=== PATIENT | male | born 1945 | race Caucasian/White ===

== ENCOUNTER → 2017-06-06 14:10 | Outpatient (CLI) | payer MEDICARE, OTHER, SELFPAY ==
--- NOTE | 2017-06-06 14:12 | CT_ITS ---
STUDY: CT ABDOMEN AND PELVIS WITHOUT CONTRAST REASON FOR EXAM: Male, 71 years old. Lower abdominal pain, penis pain, history of hypertension, diabetes, prostate cancer, bladder cancer, radiation therapy, prostatectomy, ureteral stents. RADIATION DOSAGE (If Supplied By Facility): CTDIvol = ( 6.74 ) mGy, DLP = ( 345.07 ) mGycm TECHNIQUE: Transaxial 2.5 mm images were obtained from the dome of the diaphragm to the symphysis pubis without oral contrast, and without intravenous contrast. Sagittal and coronal images were reconstructed. Axial noncontrast Individualized dose optimization techniques were used for this CT. COMPARISON: CT abdomen and pelvis 02/03/2017. 02/26/2016. FINDINGS: The visualized lung bases are unremarkable. The visualized portions of the heart are within normal limits. Normal liver. Normal gallbladder and extrahepatic biliary system. Normal spleen. Normal pancreas. Normal bilateral adrenal glands. Involution of right kidney may small size, pericolonic fat stranding and fluid, percutaneous pigtail catheter in the right collecting system. There is no right hydronephrosis, however the right ureter is prominent with periureteral stranding extending to the UVJ. Percutaneous left nephrostomy catheter with perirenal stranding, indistinct collecting system which is dilated extending to the left UVJ. Normal visualized stomach. Normal small intestine. There are multiple colonic diverticula consistent with diverticulosis. Thickening of the sigmoid colon image 132 series 2 at the site of right pelvic wall stranding. The appendix is visualized and appears normal. Image 99-107 series 2. There is stable atherosclerotic calcification of the abdominal aorta, without a demonstrated aneurysm. Normal inferior vena cava. Normal retroperitoneum. Asymmetric wall thickening of the urinary bladder more pronounced than the right side measuring 0.4, left side 0.5 cm. Indistinct soft tissue stranding and opacification right pelvic wall adjacent to the sigmoid colon. There is a stable small umbilical hernia containing fat. Subcutaneous pockets of air and stranding likely secondary to injections. Normal osseous structures. CT/Abdomen/Pel W ORAL Cont Only IMPRESSION: 1. Mild right hydroureter, mild to moderate left hydronephrosis and hydroureter decreasing compared to previous examination with the percutaneous nephrostomy catheters in apparent good position. 2. Asymmetric urinary bladder wall thickening right greater than left, not significantly changed. 3. New inflammatory fat process in the right pelvis adjacent to wall thickened sigmoid colon, acute focal diverticulitis on chronic diverticulosis may be present. No focal abscess, obstruction, perforation or abscess. 4. Stable right renal involution. 5. Atherosclerosis, fat-containing umbilical hernia are stable findings. Electronically Signed: Lori Tate MD at 7:32 EST , Service support ,
== END ==
PROVIDERS: Family Provider Student in an Organized Health Care Education/Training Program; PCP Student in an Organized Health Care Education/Training Program; Visit Provider Urology
DX: R10.30 Lower abdominal pain, unspecified (principal)
CPT/HCPCS: 74176

== ENCOUNTER 2017-06-28 12:45 | Day surgery (SDC) | payer MEDICARE, OTHER, SELFPAY ==
[2017-06-28] VITALS (7 sets, daily range): BP systolic 113–137; BP diastolic 69–74; PULSE 82–87; RESP 14–16; TEMP 36.1–36.7; O2SAT 98–100; BMI 20.9
--- NOTE | 2017-06-28 12:54 | EKG12_ITS ---
Test Reason : PRE OP Blood Pressure : / mmHG Vent. Rate : 085 BPM Atrial Rate : 085 BPM P-R Int : 194 ms QRS Dur : 078 ms QT Int : 372 ms P-R-T Axes : -01 079 028 degrees QTc Int : 442 ms Normal sinus rhythm ST abnormality, possible digitalis effect Abnormal ECG When compared with ECG of 26-FEB-2016 22:35, No significant change was found Confirmed by GISELE LOUIS ([id number]), assignment editor FRANNY QUINTERO ([id number]) on 06/30/2017 3:19:31 PM Referred By: Eric Romero Confirmed By:GISELE LOUIS
[2017-06-28 13:51] LABS: Bedside Glucose 105 mg/dL (70-110)
[2017-06-28 13:53] LABS: Hematocrit 31.4 % (40-54); Hemoglobin 10.2 g/dl (13.0-16.5); Mean Corp Hgb Conc 32.5 g/gl (32-36); Mean Corpuscular Volume 101.6 fL (80-94); Mean Platelet Vol. 8.9 fl (6.2-12.0); Platelet Count 279 K/mm3 (150-450); RBC Distribution Width CV 14.3 % (11.6-14.6); Red Blood Count 3.09 M/mm3 (4.6-6.2)
[2017-06-28 13:55] LABS: Scan Indicated on CBC? Y/N NO
[2017-06-28 14:01] LABS: Anion Gap 11 (5-15); BUN 57 mg/dL (7-18); BUN/Creat Ratio 12.9 RATIO (10-20); Calcium,Total 8.8 mg/dL (8.5-10.1); Chloride 113 mmol/L (98-107); Creatinine, Serum 4.42 mg/dL (0.70-1.30); EST Glomerular Filtration Rate 14 mL/min (>60); Est Glom Filt Rate - Afr Amer 17 mL/min (>60); Estimated Creatinine Clearance 13.58 ml/min; Glucose 103 mg/dL (74-106); Potassium 3.6 mmol/L (3.5-5.1); Sodium Level 140 mmol/L (136-145)
[2017-06-28] MEDS: Cefazolin 2 GM in 0.9% Normal Saline 100 ML IV (14:16)
--- NOTE | 2017-06-28 14:21 | PCM.DC.POR ---
Discharge Diet: Renal Diet Discharge Activity: May Not Shower Additional Dressing/Incision Instructions:: Your dressings will be managed by the dialysis center. Please keep the catheters clean and dry.. Allergies/Adverse Reactions: Allergies No Known Allergies Allergy (Verified 06/27/17 14:22) Medications to take at Discharge Lactose-Reduced Food [Boost Plus] 237 ml PO BID 02/26/16 Amlodipine [Norvasc] 10 mg PO DAILY #30 tab 03/03/16 Insulin Aspart [Novolog Flexpen] 16 units SC QHS 06/16/16 Multivitamins,Therapeutic [Multivitamin] 1 tab PO DAILY 06/18/16 Ferrous Sulfate [Iron] 325 mg PO DAILY 11/02/16 Insulin Aspart [Novolog Flexpen] 6 units SC TIDCM 11/18/16 Hydrocodone Bitart/Apap 5-325 [Norris 5MG-325MG] 1 tablet PO Q6H PRN PRN 3 Days #6 tablet 06/28/17 The following prescriptions were given: Hydrocodone Bitart/Apap 5-325 [Norris 5MG-325MG] 1 tablet PO Q6H PRN PRN 3 Days #6 tablet PRN Reason: Pain Primary Care Physician: Omero Hager DO [Primary Care Provider] - Please Follow Up With: Eric Romero MD - [phone] When: Please plan to follow up in14 days in the office.
--- NOTE | 2017-06-28 14:22 | RAD_ITS ---
STUDY: X-RAY CHEST REASON FOR EXAM: Male, 71 years old. Post hemodialysis catheter TECHNIQUE: Single AP portable view of the chest. COMPARISON: August 28, 2015 chest x-ray FINDINGS: There is a new large caliber right-sided central line in place the tip within the superior vena cava. There is no visualized pneumothorax. The lungs are clear and expanded. There is no demonstrated pleural abnormality. Normal size heart. Normal mediastinum and dirk. Normal visualized pulmonary arteries. There is atherosclerotic tortuosity of the aortic arch and descending thoracic aorta. There are diffuse degenerative changes of the visualized thoracic spine. Normal visualized ribs, clavicles, and shoulders. There is no demonstrated abnormality of the visualized soft tissue structures of the upper abdomen. RAD/Chest 1 View (Portable) IMPRESSION: New right side central line tip in the superior vena cava and no evidence of pneumothorax. Electronically Signed: Casi Mcdaniels MD at 15:31 EST Tel , Service support ,
[2017-06-28] MEDS: Bupivacaine 0.25% 30 ML Vial (14:35)
[2017-06-28] MEDS: Heparin 10,000 UNITS/10 ML Vial 10000 UNITS (14:46)
--- NOTE | 2017-06-28 14:54 | PCM.OPRPT ---
Problem List (1) Acute on chronic renal failure Status: Acute Qualifiers: Report of Operation Date of Procedure: 06/28/17 Pre-Operative Diagnosis: Chronic renal insufficiency Post-Operative Diagnosis: Same Surgery/Procedure Performed:: Right internal jugular 19 cm pre-curved palindrome catheter placement. Reference number [id number] lot #[id number] Description of Surgical Findings:: Timeout and informed consent was obtained. 71-year-old gent was taken out from. The table. Ancef 2 g given intravenous preoperatively. The right neck was sterilely prepped and draped in routine fashion. He underwent monitored anesthesia care local anesthetic. Under ultrasound guidance 1% lidocaine mixed 50-50 with 0.25% Marcaine was used as a local anesthetic. A total 20 cc was used. Local was instilled under ultrasound guidance. Micropuncture needle was used to access the right internal jugular vein. Seldinger wire technique performed. Local was instilled down upon the chest wall. Exit site was selected. Stab incisions created. The 19 cm pre-curved palindrome catheter was tunneled from the chest to the neck. Dense micropuncture sheath was placed an 035 J-wire was inserted. The tract was dilated. The sheath dilator was inserted. Under fluoroscopic control the wire and dilator were removed. The catheter was advanced to the sheath. The sheath was split and the catheter was positioned at the SVC atrial junction. Good curvilinear position was achieved. The limbs were irrigated and aspirated with saline then 2 cc per channel of heparinized saline. The catheter was secured skin with interrupted 3-0 nylon. The neck site was closed in interrupted 5-0 Vicryl subdermal stitch. Steri-Strips Telfa dressing applied to the neck site and a silver impregnated dressing was applied to the exit site. Sponge instrument and needle counts were reported to the surgeon to be correct. Blood loss was minimal. He was taken to the recovery or insect condition without apparent complication with stat portable chest x-ray pending. Specimens none. Drains none. Blood loss minimal. Eric Romero M.D., F.A.C.S.
--- NOTE | 2017-06-28 14:58 | OP.PCM_ITS ---
Problem List (1) Acute on chronic renal failure Status: Acute Qualifiers: Report of Operation Date of Procedure: 06/28/17 Pre-Operative Diagnosis: Chronic renal insufficiency Post-Operative Diagnosis: Same Surgery/Procedure Performed:: Right internal jugular 19 cm pre-curved palindrome catheter placement. Reference number [id number] lot #[id number] Description of Surgical Findings:: Timeout and informed consent was obtained. 71-year-old gent was taken out from. The table. Ancef 2 g given intravenous preoperatively. The right neck was sterilely prepped and draped in routine fashion. He underwent monitored anesthesia care local anesthetic. Under ultrasound guidance 1% lidocaine mixed 50-50 with 0.25% Marcaine was used as a local anesthetic. A total 20 cc was used. Local was instilled under ultrasound guidance. Micropuncture needle was used to access the right internal jugular vein. Seldinger wire technique performed. Local was instilled down upon the chest wall. Exit site was selected. Stab incisions created. The 19 cm pre-curved palindrome catheter was tunneled from the chest to the neck. Dense micropuncture sheath was placed an 035 J-wire was inserted. The tract was dilated. The sheath dilator was inserted. Under fluoroscopic control the wire and dilator were removed. The catheter was advanced to the sheath. The sheath was split and the catheter was positioned at the SVC atrial junction. Good curvilinear position was achieved. The limbs were irrigated and aspirated with saline then 2 cc per channel of heparinized saline. The catheter was secured skin with interrupted 3-0 nylon. The neck site was closed in interrupted 5-0 Vicryl subdermal stitch. Steri- Strips Telfa dressing applied to the neck site and a silver impregnated dressing was applied to the exit site. Sponge instrument and needle counts were reported to the surgeon to be correct. Blood loss was minimal. He was taken to the recovery or insect condition without apparent complication with stat portable chest x-ray pending. Specimens none. Drains none. Blood loss minimal. Eric Romero M.D., F.A.C.S.
--- NOTE | 2017-06-28 15:32 | SUR.PHASEI ---
APPT MAKE FOR PT TO HAVE VEIN MAPPING DONE ON JULY 12, PER REQUEST OF DR DOLL. APPT MADE BY [facility]. PT IS AWARE THAT AFTER VEIN MAPPING IS COMPLETE HE WILL NEED TO HAVE APPT TO SEE DR DOLL. PT DID NOT WANT APPT MADE WITH DR DOLL AT THIS TIME, HE WANTED TO WAIT UNTIL IT WAS CLOSER TO THE DATE DUE TO HEALTH CONCERNS AND APPOINTMENTS.
== END 2017-06-28 16:32 | disposition home or self-care (01) ==
LOC: SDC 12:46 → AC 12:47
PROVIDERS: Anesthesiology; Family Provider Student in an Organized Health Care Education/Training Program; PCP Student in an Organized Health Care Education/Training Program; Visit Provider Surgery
PROC: (CPT 36558; principal; 2017-06-28 15:45)
DX: I12.0 Hypertensive chronic kidney disease with stage 5 chronic kidney disease or end stage renal disease (principal); N18.5 Chronic kidney disease, stage 5; N17.9 Acute kidney failure, unspecified; E11.9 Type 2 diabetes mellitus without complications; D64.9 Anemia, unspecified; Z85.46 Personal history of malignant neoplasm of prostate; Z85.51 Personal history of malignant neoplasm of bladder; Z79.4 Long term (current) use of insulin; Z79.899 Other long term (current) drug therapy
CPT/HCPCS: 36558; 71045; 76000; 80048; 82962; 85027; 93005; C1750

== ENCOUNTER → 2017-07-12 13:38 | Outpatient (CLI) | payer MEDICARE, OTHER, SELFPAY ==
--- NOTE | 2017-07-12 13:39 | VDUE_ITS ---
Reason For Study: access for placement Right Arm Left Arm Right cephalic vein is compressible. Left cephalic vein is compressible. Right Cephalic Vein at the shoulder Left Cephalic Vein at the shoulder measures .204 x .196 cm. measures .204 x .189 cm. Right Cephalic Vein mid bicep measures .175 Left Cephalic Vein at mid bicep x .175 cm. measures .124 x .1 cm. Right Cephalic Vein above antecub Left Cephalic Vein above antecub measures .263 x .273 cm. measures .124 x .09 cm. Right Cephalic Vein below antecub Left Cephalic Vein below antecub measures .3 x .316 cm. measures .269 x .279 cm. Right Cephalic Vein in the forearm Left Cephalic Vein in the forearm measures .275 x .287 cm. measures .244 x .269 cm. Right Cephalic Vein at the wrist Left Cephalic Vein at the wrist measures .325 x .312 cm. measures .279 x .269 cm. Right basilic vein is compressible. Left basilic vein is compressible. Right Basilic Vein at the origin Basilic vein at origin measures .429 x .399 measures .352 x .387 cm. cm. Right Basilic Vein above antecub Basilic vein above antecub measures .437 measures .434 x .422 cm. x .445 cm. Right Basilic Vein below antecub Basilic vein below antecub measures .168 measures .144 x .139 cm. x .179 cm. Right Basilic Vein in the forearm Basilic vein in the forearm measures .191 measures .179 x .185 cm. x .214 cm. Right Basilic Vein at the wrist Basilic vein at the wrist measures .169 measures .144 x .127 cm. x .139 cm. Brachial artery 70.3 cm/s. Brachial artery 77.4 cm/s. Brachial artery .42 x .449 cm. Brachial artery .363 x .336 cm. Radial artery 68.4 cm/s. Radial artery 68.0 cm/s. Radial artery .171 x .195 cm. Radial artery .211 x .215 cm. Cephalic Vein is tortuous in the upper arm. Cephalic Vein is tortuous in the upper arm. < Interpretation Summary Patent and compressible bilateral upper extremity cephalic and basilic veins as noted. Tortuous bilateral upper arm cephalic veins. Small radial arteries bilaterally. Ordering Physician: Eric Romero Performed By: Lester Donato RVT
== END ==
PROVIDERS: Family Provider Student in an Organized Health Care Education/Training Program; PCP Student in an Organized Health Care Education/Training Program; Visit Provider Surgery
DX: Z01.818 Encounter for other preprocedural examination (principal); N17.9 Acute kidney failure, unspecified; N18.4 Chronic kidney disease, stage 4 (severe)
CPT/HCPCS: 93970; 93971; G0365

== ENCOUNTER 2017-07-18 10:45 | Outpatient (RCR) | payer MEDICARE, OTHER, SELFPAY ==
[2017-07-18 11:20] LABS: Absolute Lymphocyte Count 0.85 X10^3/ul (0.83-4.51); Absolute Neutrophil Count 5.5 X10^3/uL (2.0-7.7); Basophil# 0.03 X10^3/uL; Basophil% 0.4 % (0-1); Eosinophil# 0.16 X10^3/uL; Eosinophils% 2.2 % (0-5); Hematocrit 29.3 % (40-54); Hemoglobin 9.3 g/dl (13.0-16.5); Lymphocyte # 0.85 X10^3/ul (4.0); Lymphocyte % 11.8 % (19-41); Mean Corp Hgb Conc 31.7 g/gl (32-36); Mean Corpuscular Volume 103.9 fL (80-94); Mean Platelet Vol. 8.8 fl (6.2-12.0); Monocyte% 8.3 % (0-10); Neutrophil # 5.46 X10^3/uL (2.7-7.7); Neutrophil % 75.9 % (47-70); POSITIVE COUNT NO; POSITIVE DIFFERENTIAL NO; POSITIVE MORPHOLOGY NO; Platelet Count 289 K/mm3 (150-450); RBC Distribution Width CV 13.9 % (11.6-14.6); RBC Distribution Width SD 52.4 fl (35.1-43.9); Red Blood Count 2.82 M/mm3 (4.6-6.2); White Blood Count 7.2 K/mm3 (4.4-11.0)
[2017-07-18 11:25] LABS: Prothrombin Time (Protime)PT. 12.8 SECONDS (11.7-14.9)
[2017-07-18 11:26] LABS: Partial Thromboplast Time 25.8 Seconds (24.1-36.2)
[2017-07-18 11:42] LABS: Anion Gap 10 (5-15); BUN 32 mg/dL (7-18); BUN/Creat Ratio 7.6 RATIO (10-20); Calcium,Total 8.5 mg/dL (8.5-10.1); Chloride 101 mmol/L (98-107); Creatinine, Serum 4.19 mg/dL (0.70-1.30); EST Glomerular Filtration Rate 15 mL/min (>60); Est Glom Filt Rate - Afr Amer 18 mL/min (>60); Glucose 184 mg/dL (74-106); Potassium 3.6 mmol/L (3.5-5.1); Sodium Level 139 mmol/L (136-145)
== END 2017-07-18 11:00 | disposition home or self-care (01) ==
LOC: LAB 10:45
PROVIDERS: Family Provider Student in an Organized Health Care Education/Training Program; PCP Student in an Organized Health Care Education/Training Program; Visit Provider Internal Medicine Nephrology
DX: N17.9 Acute kidney failure, unspecified (principal)
CPT/HCPCS: 36415; 80048; 85025; 85610; 85730

== ENCOUNTER → 2017-07-26 09:04 | Outpatient (CLI) | payer MEDICARE, OTHER, SELFPAY ==
--- NOTE | 2017-07-26 09:12 | RAD_ITS ---
STUDY: NEPHROSTOMY TUBE EXCHANGE LEFT REASON FOR EXAM: Male, 71 years old. Indwelling left nephrostomy tube. FLUOROSCOPY TIME (if supplied): (0:38) minutes/seconds TECHNIQUE: The left flank was prepped and draped in usual sterile fashion. An Amplatz super stiff guidewire was placed into the indwelling left percutaneous nephrostomy catheter. This was exchanged for a new 8.5 Malaysian nephrostomy catheter. The patient tolerated the procedure well. RAD/Nephrostomy Tube Exchange IMPRESSION: Successful exchange of the indwelling 8.5 Malaysian left percutaneous nephrostomy catheter. Electronically Signed: Grayson Perez MD at 10:25 EDT Tel [phone], Service support ,
== END ==
PROVIDERS: Family Provider Student in an Organized Health Care Education/Training Program; PCP Student in an Organized Health Care Education/Training Program; Visit Provider Urology
DX: Z01.812 Encounter for preprocedural laboratory examination (principal); N13.1 Hydronephrosis with ureteral stricture, not elsewhere classified; C61 Malignant neoplasm of prostate; I12.9 Hypertensive chronic kidney disease with stage 1 through stage 4 chronic kidney disease, or unspecified chronic kidney disease; N18.4 Chronic kidney disease, stage 4 (severe)
CPT/HCPCS: 50435; Q9967

== ENCOUNTER 2017-08-01 10:40 | Emergency (ER) | payer MEDICARE, OTHER, SELFPAY ==
[2017-08-01 10:42] VITALS: BP 109/44; PULSE 94; RESP 17; TEMP 36.8; O2SAT 97; BMI 21.7
--- NOTE | 2017-08-01 11:32 | ED.VISSUMM ---
- ER Visit Summary Date of Service: 08/01/17 Chief Complaint: Finger laceration History of Present Illness: The patient is a 71 M who presents with leaking from his left nephrostomy tube. Patient states he has had nephrostomy tubes were [address] Kirk. 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 He is on dialysis. Patient was seen at approximately 11:10 AM and the patient states he needs to leave by 1130 for dialysis. He the drainage seems to be positional and at its maximum when he lays down. Denies any fevers. Physical Examination: Afebrile vital signs are stable Left CVA area demonstrates a nephrostomy tube. I do not see any overt signs of infection. The bandage is moist. There is no erythema. No expression of fluid. There is fluid in the nephrostomy bag. Emergency Department Course and Treatment: The patient wishes to sign out AMA and states he will return later. I did contact Dr. Siddiqui who is covering for his urologist. Urology will attempt to contact the individual to help set up care for him. He is welcome to return to emergency department any time. Impression: 1. Nephrostomy tube complication 2. Left AGAINST MEDICAL ADVICE This note was generated with [employer] dictation software. It may contain incorrect words, spelling, and punctuation that were not noted in review of the chart prior to signing ED Disposition - Plan for ED Patient: Disposition: Against Medical Advice Chief Complaint: Wound Instructions: Discharge Instructions for Percutaneous Nephrostomy Referrals: Omero Hager DO [Primary Care Provider] - Gurjit Kirk MD [STAFF PHYSICIAN] - As soon as possible
--- NOTE | 2017-08-01 11:36 | ED.RN ---
PATIENT LEAVING AMA. THIS NURSE INFORMED THE PATIENT OF PLAN FOR CARE AND ENCOURAGED THE PATIENT TO STAY FOR TREATMENT BUT PATIENT REFUSED. THIS NURSE ALSO OFFERED TO CALL DIALYSIS CENTER AND NOTIFY THEM THAT PATIENT WAS IN THE ER BUT PATIENT STATED THAT HE WANTED TO LEAVE AND GO TO HIS APPOINTMENT.
--- NOTE | 2017-08-01 14:17 | NURSING ---
at 1135 sterile dressing change completed to rt flank nephrostomy tube. marking between 9 and 10cm, report to pt, who stated he was going to call his doctor about a leaking around tube. White creamy discharge around insertion site pt reports that as normal. RN aware dressing change completed.
== END 2017-08-01 11:40 | disposition left against medical advice (07) ==
PROVIDERS: Emergency Provider Emergency Medicine; Family Provider Student in an Organized Health Care Education/Training Program; PCP Student in an Organized Health Care Education/Training Program
DX: T83.89XA Other specified complication of genitourinary prosthetic devices, implants and grafts, initial encounter (principal); Z99.2 Dependence on renal dialysis; Z85.46 Personal history of malignant neoplasm of prostate; Z85.51 Personal history of malignant neoplasm of bladder
CPT/HCPCS: 99281

== ENCOUNTER 2017-08-18 10:06 | Outpatient (RCR) | payer MEDICARE, OTHER, SELFPAY ==
[2017-08-18 11:03] LABS: Anion Gap 7 (5-15); BUN 24 mg/dL (7-18); BUN/Creat Ratio 6.9 RATIO (10-20); Calcium,Total 8.9 mg/dL (8.5-10.1); Chloride 100 mmol/L (98-107); EST Glomerular Filtration Rate 18 mL/min (>60); Est Glom Filt Rate - Afr Amer 22 mL/min (>60); Glucose 123 mg/dL (74-106); Potassium 4.2 mmol/L (3.5-5.1); Sodium Level 139 mmol/L (136-145)
[2017-08-18 13:07] LABS: Absolute Lymphocyte Count 0.99 X10^3/ul (0.83-4.51); Absolute Neutrophil Count 3.9 X10^3/uL (2.0-7.7); Basophil# 0.02 X10^3/uL; Basophil% 0.4 % (0-1); Eosinophil# 0.18 X10^3/uL; Eosinophils% 3.2 % (0-5); Hemoglobin 11.8 g/dl (13.0-16.5); Lymphocyte # 0.99 X10^3/ul (4.0); Lymphocyte % 17.8 % (19-41); Monocyte# 0.43 X10^3/uL; Monocyte% 7.7 % (0-10); Neutrophil % 70.2 % (47-70)
[2017-08-18 13:08] LABS: Red Blood Count 3.58 M/mm3 (4.6-6.2); White Blood Count 5.8 K/mm3 (4.4-11.0)
[2017-08-18 13:09] LABS: Hematocrit 37.5 % (40-54); Mean Corp Hgb Conc 31.5 g/gl (32-36); Mean Corpuscular Volume 104.7 fL (80-94); Mean Platelet Vol. 9.5 fl (6.2-12.0); POSITIVE COUNT NO; POSITIVE DIFFERENTIAL NO; POSITIVE MORPHOLOGY NO; Platelet Count 147 K/mm3 (150-450); RBC Distribution Width CV 14.6 % (11.6-14.6); RBC Distribution Width SD 54.7 fl (35.1-43.9)
== END 2017-08-18 11:00 | disposition home or self-care (01) ==
LOC: LAB 10:06
PROVIDERS: Family Provider Student in an Organized Health Care Education/Training Program; PCP Student in an Organized Health Care Education/Training Program; Visit Provider Internal Medicine Nephrology
DX: N17.9 Acute kidney failure, unspecified (principal)
CPT/HCPCS: 36415; 80048; 85025

== ENCOUNTER 2017-08-18 10:10 | Day surgery (SDC) | payer MEDICARE, OTHER, SELFPAY ==
[2017-08-18 10:29] VITALS: BP 121/75; PULSE 83; RESP 18; TEMP 37.1; O2SAT 99; BMI 21.4
[2017-08-18 10:42] LABS: Hematocrit 37.5 % (40-54); Hemoglobin 11.8 g/dl (13.0-16.5); Mean Corp Hgb Conc 31.5 g/gl (32-36); Mean Corpuscular Volume 104.7 fL (80-94); Mean Platelet Vol. 9.5 fl (6.2-12.0); Platelet Count 147 K/mm3 (150-450); RBC Distribution Width CV 14.6 % (11.6-14.6); RBC Distribution Width SD 54.7 fl (35.1-43.9); Red Blood Count 3.58 M/mm3 (4.6-6.2); White Blood Count 5.8 K/mm3 (4.4-11.0)
[2017-08-18 10:44] LABS: Scan Indicated on CBC? Y/N NO
[2017-08-18 10:54] LABS: Anion Gap 7 (5-15); BUN 24 mg/dL (7-18); BUN/Creat Ratio 6.9 RATIO (10-20); Calcium,Total 8.9 mg/dL (8.5-10.1); Chloride 100 mmol/L (98-107); EST Glomerular Filtration Rate 18 mL/min (>60); Est Glom Filt Rate - Afr Amer 22 mL/min (>60); Estimated Creatinine Clearance 17.55 ml/min; Glucose 126 mg/dL (74-106); Potassium 4.2 mmol/L (3.5-5.1); Sodium Level 139 mmol/L (136-145)
[2017-08-18] MEDS: Bupivacaine Mpf 0.5% 30 ML VIAL (12:02)
--- NOTE | 2017-08-18 15:07 | PCM.OPRPT ---
Problem List (1) Chronic renal insufficiency, stage V Status: Acute Report of Operation Date of Procedure: 08/18/17 Pre-Operative Diagnosis: Stage V renal insufficiency Post-Operative Diagnosis: Same Surgery/Procedure Performed:: Right forearm transposition cephalic vein to radial artery AV fistula creation Description of Surgical Findings:: 71-year-old gentleman was taken the operating. He was placed on the table. He underwent monitored anesthesia care local anesthetic. 1% lidocaine mixed 50-50 with 0.5% Marcaine was used as local anesthetic. A total 35 cc was used. Ultrasound was used to do a vein mapping of the cephalic vein. In the distal third of the forearm it branched and became more diminutive. Local was instilled upon the vein after sterile prepping and draping. A longitudinal incision was made directly over the vein with sharp and blunt dissection was used to harvest the vein. Side branches were secured with a combination of hemoclips and 4-0 Vicryl ligatures. Superficial radial nerve was densely adherent to the vein and had to be sharply dissected free. Some sheath and was repaired with interrupted 7-0 Prolene to ensure its intactness. The vein was harvested to the antecubital space. It was measured. It was ink marked. Then using Doppler the radial artery was identified at the appropriate distance. Careful sharp and blunt dissection was used to identify the radial artery and circumferentially dissected free. Vessel loop was placed. Then local was instilled and medial to the incision carefully a subtenons pocket was tunneled using a 6 mm diameter [place] tunneler. The vein was ligated distally with hemoclips it was spatulated at a branch point. It was placed through the tunnel taking care not to incur any twists or angulation. The patient received 7000 units of heparin. After adequate circling time peripheral vascular clamps were placed on the radial artery. 11 blade was used to make an arteriotomy was extended with Leija scissors. The vein had been spatulated. A end-to-side anastomosis created with a running 7-0 Prolene. Prior to completion is good antegrade and retrograde flow. The anastomosis was completed was immediately hemostatic. There was good flow and this was checked with Doppler. There is good positional lie. The wound was then closed with a running septic or 3-0 Vicryl and then a running septic or 4-0 Monocryl. The radial artery and ulnar artery distal to the anastomosis were inspected with Doppler. There was triphasic flow at both sites. It appeared to be viable with good capillary refill. Sponge, needle, instrument counts reported and surgical correct. Steri-Strips were used to approximate the wound followed by Telfa tape soft roll and a gentle Vinod wrap. He was taken to the recovery area in satisfactory condition Eric Romero M.D., F.A.C.S.
[2017-08-18 15:26] VITALS: BP 101/71; BP 121/75; PULSE 74; RESP 16; TEMP 36.6; O2SAT 94
[2017-08-18 15:30] VITALS: BP 102/74; BP 121/75; PULSE 77; RESP 16; O2SAT 96
[2017-08-18 15:35] VITALS: BP 102/74; BP 121/75; PULSE 84; RESP 16; O2SAT 97
--- NOTE | 2017-08-18 15:41 | SUR.PHASEI ---
Addendum entered by Savana Bull 08/18/17 15:46: Original Note: 1530 SURGICAL SITE ASSESSED, CHE WRAP REMOVED PER DR DOLL. GOOD BRUIT AND THRILL NOTED. VSS
[2017-08-18 15:42] VITALS: BP 121/75; BP 122/77; PULSE 80; RESP 16; TEMP 36.4; O2SAT 96
[2017-08-18 16:14] VITALS: BP 121/75
== END 2017-08-18 16:26 | disposition home or self-care (01) ==
LOC: SDC 10:10 → AC 11:56
PROVIDERS: Anesthesiology; Family Provider Student in an Organized Health Care Education/Training Program; PCP Student in an Organized Health Care Education/Training Program; Visit Provider Surgery
PROC: (CPT 36821; principal; 2017-08-18 12:45)
DX: I12.0 Hypertensive chronic kidney disease with stage 5 chronic kidney disease or end stage renal disease (principal); E11.22 Type 2 diabetes mellitus with diabetic chronic kidney disease; N18.5 Chronic kidney disease, stage 5; N17.9 Acute kidney failure, unspecified; D64.9 Anemia, unspecified; Z79.4 Long term (current) use of insulin; Z79.891 Long term (current) use of opiate analgesic; Z79.899 Other long term (current) drug therapy; Z85.46 Personal history of malignant neoplasm of prostate; Z85.51 Personal history of malignant neoplasm of bladder
CPT/HCPCS: 36821; 36415; 80048; 85025; 85027; J2405

== ENCOUNTER 2017-09-25 12:23 | Emergency (ER) | payer MEDICARE, OTHER, SELFPAY ==
[2017-09-25 12:24] VITALS: BP 110/61; PULSE 102; RESP 18; TEMP 36.9; O2SAT 98; BMI 21.5
--- NOTE | 2017-09-25 13:08 | RAD_ITS ---
STUDY: X-RAY - ABDOMEN/PELVIS REASON FOR EXAM: Male, 72 years old. Constipation. TECHNIQUE: AP supine view. COMPARISON: None. FINDINGS: Normal visualized lung bases. There is an unremarkable bowel gas pattern. There is no demonstrated free abdominal air. The visualized liver, spleen and kidneys are grossly normal in size and morphology. Left nephrostomy drain catheter in place. Normal visualized osseous structures. RAD/Abdomen Single View IMPRESSION: 1. Left nephrostomy drain in place. 2. No suspicious acute abnormality in the abdomen and pelvis. Electronically Signed: Brenton Hoang MD at 14:01 EDT , Service support ,
--- NOTE | 2017-09-25 15:40 | ED.DCSUM_ITS ---
- ER Visit Summary Date of Service: 09/25/17 Chief Complaint: Constipation History of Present Illness: The patient is a [address] Hager, Dr. Rawls, Dr. Nguyen, and Dr. Lagos. He reports his last bout was approximately 2 weeks ago. 3 days ago he took 2 doses of MiraLAX. He also uses a Dulcolax suppository. Reports it is small amount after he worked it out with his finger. As it typically has a bowel movement every other day. He denies any abdominal pain. No nausea or vomiting. Review of systems: General: No fever, chills, cold sweats. Cardiovascular: No chest pain, palpitations. Respiratory: No cough, shortness of breath, dyspnea on exertion. Gastrointestinal: No abdominal pain, nausea, vomiting, diarrhea, melena, or hematochezia. Skin: No rash. Neuro: No headache, numbness, weakness. Physical Examination: Vitals: Stable. Afebrile. General: Well-nourished and well-developed. Head: Normocephalic atraumatic. Neck: Supple, no lymphadenopathy. No JVD. Nontender. Cardiovascular: Regular rate and rhythm. No murmurs. Respiratory: No respiratory distress. Clear to auscultation bilaterally. Abdominal: Soft, nontender, nondistended, normal bowel sounds. No guarding, rebound, or peritoneal signs. Rectal: Nontender. No stool in the vault. Back: Nontender. Extremities: Nontender, no edema. Skin: Normal color, no rash. Neurologic: Alert and oriented ?3. Cranial nerves II through XII are intact. Normal strength and sensation. Psych: Normal affect. Test Results: One view of the abdomen shows nonspecific bowel gas pattern the left nephrostomy drain. Emergency Department Course and Treatment: Patient was given a soapsuds enema with small results. Treatment Plan: Patient will be discharged with magnesium citrate. Instructed follow-up Dr. Hager in 1-2 days if not improving. Return to the emergency department for any worsening symptoms. Disposition: To home in improved and stable condition. Impression: 1. Constipation. This note was generated with [employer] software. It may contain incorrect words, spelling, and punctuation that were not noted in review of the chart prior to signing ED Disposition - Plan for ED Patient: Chief Complaint: Constipation Instructions: ED Constipation Prescriptions: Magnesium Citrate [Citrate Of Magnesia] 300 ml PO X1 #1 bottle Referrals: Omero Hager DO [Primary Care Provider] - 1-2 Days if not improving
[2017-09-25 15:58] VITALS: BP 122/70; PULSE 79; RESP 16; O2SAT 97
== END 2017-09-25 15:59 | disposition home or self-care (01) ==
PROVIDERS: Emergency Provider Emergency Medicine; Family Provider Student in an Organized Health Care Education/Training Program; PCP Student in an Organized Health Care Education/Training Program
DX: K59.00 Constipation, unspecified (principal); N18.6 End stage renal disease; Z99.2 Dependence on renal dialysis; Z85.46 Personal history of malignant neoplasm of prostate; Z85.51 Personal history of malignant neoplasm of bladder
CPT/HCPCS: 74018; 99284

== ENCOUNTER → 2017-09-27 09:02 | Outpatient (CLI) | payer MEDICARE, OTHER, SELFPAY ==
[2017-09-23 11:26] LABS: Absolute Lymphocyte Count 0.75 X10^3/ul (0.83-4.51); Absolute Neutrophil Count 8.8 X10^3/uL (2.0-7.7); Basophil# 0.02 X10^3/uL; Basophil% 0.2 % (0-1); Eosinophil# 0.05 X10^3/uL; Eosinophils% 0.5 % (0-5); Hematocrit 26.2 % (40-54); Hemoglobin 7.8 g/dl (13.0-16.5); Lymphocyte # 0.75 X10^3/ul (4.0); Lymphocyte % 7.2 % (19-41); Mean Corp Hgb Conc 29.8 g/gl (32-36); Mean Corpuscular Volume 97.4 fL (80-94); Mean Platelet Vol. 8.5 fl (6.2-12.0); Monocyte# 0.73 X10^3/uL; Neutrophil % 84.2 % (47-70); Platelet Count 472 K/mm3 (150-450); RBC Distribution Width CV 18.1 % (11.6-14.6); RBC Distribution Width SD 61.8 fl (35.1-43.9); Red Blood Count 2.69 M/mm3 (4.6-6.2); White Blood Count 10.4 K/mm3 (4.4-11.0)
[2017-09-23 11:34] LABS: POSITIVE COUNT NO; POSITIVE DIFFERENTIAL NO; POSITIVE MORPHOLOGY NO
--- NOTE | 2017-09-27 09:20 | RAD_ITS ---
STUDY: NEPHROSTOMY TUBE CHANGE LEFT REASON FOR EXAM: Male, 72 years old. Ureteral obstruction. FLUOROSCOPY TIME (if supplied): (0:23) minutes/seconds TECHNIQUE: The patient was in the prone position. Contrast was injected into the indwelling left percutaneous catheter. Following this, a guidewire was placed into the indwelling nephrostomy catheter. Over the guidewire, a new 8.5 Romansh catheter was placed. The tip is in the renal pelvis. COMPARISON: None. FINDINGS: Successful exchange of the left percutaneous nephrostomy catheter. RAD/Nephrostomy Tube Exchange IMPRESSION: Successful exchange of the left percutaneous nephrostomy catheter. Electronically Signed: Grayson Perez MD at 10:47 EDT Tel [phone], Service support ,
== END ==
PROVIDERS: Family Provider Student in an Organized Health Care Education/Training Program; PCP Student in an Organized Health Care Education/Training Program; Visit Provider Urology
DX: N13.30 Unspecified hydronephrosis (principal); N18.4 Chronic kidney disease, stage 4 (severe)
CPT/HCPCS: 36415; 50435; 85025; Q9967

== ENCOUNTER → 2017-10-06 09:41 | Outpatient (CLI) | payer MEDICARE, OTHER, SELFPAY ==
[2017-10-06] VITALS (7 sets, daily range): BP systolic 109–141; BP diastolic 59–77; PULSE 83–90; RESP 16–18; TEMP 36.3–37.1; O2SAT 96–100; BMI 21.5
== END ==
PROVIDERS: Family Provider Student in an Organized Health Care Education/Training Program; PCP Student in an Organized Health Care Education/Training Program; Visit Provider Internal Medicine Nephrology
DX: N18.4 Chronic kidney disease, stage 4 (severe) (principal); D63.1 Anemia in chronic kidney disease
CPT/HCPCS: 36415; 36430; 86850; 86900; 86920; 86922; J7040; P9016; A4216

== ENCOUNTER 2017-10-30 12:04 | Emergency (ER) | payer MEDICARE, OTHER, SELFPAY ==
[2017-10-30 12:05] VITALS: BP 117/72; PULSE 99; RESP 17; TEMP 36.7; O2SAT 97; BMI 19.2
--- NOTE | 2017-10-30 12:55 | ED.DCSUM_ITS ---
- ER Visit Summary Date of Service: 10/30/17 Chief Complaint: [] rt Back abscess for about a week History of Present Illness: The patient is a 72 M [] she has history of renal disease diabetes left nephrostomy tube that straining end-stage renal disease on dialysis Tuesday and Tuesday he has been doing well his health has been very good for him, no complaints of any kind he is noticed what he describes as a cyst to the right back that is progressively getting avery with fluid he presents for evaluation for that cyst or abscess, he has had nephrostomy tubes on the right side this is not associated with any of those nephrostomy tubes sites, has had no trauma the area no fever no cough no history of MRSA his left nephrostomy tube is draining well he underwent dialysis Tuesday with no complications, right arm fistula is intact Physical Examination: [] Distress head neck chest unremarkable he does have a right sided 2 cm circular fluid-filled cystic lesion that is minimally tender it is not warm there is no fluctuance surrounding erythema or cellulitis it appears to be stick to the skin very mobile nontender, he has a left nephrostomy tube draining yellow urine he has a right arm fistula has a good thrill and appears normal condition hand functions normal good perfusion neurologically is awake alert moving all 4 his lungs are clear heart tones are normal abdomen soft nontender the rest exams unremarkable the rest of the skin exams unremarkable Test Results: [] Emergency Department Course and Treatment: [] Asking this area be I&D, air underwent sterile prep anesthetic and it was ideal for difficulty fluid was cultured standard approach he is currently on Cipro I explained to him the concept of MRSA rather than start a second antibiotic that might cause him difficulty with things like C. difficile GI ailments rashes etc. I have asked him to call his physicians and have the wound culture checked to see if other additional antibiotics would be warranted and he will do that he will otherwise follow wound care measures Treatment Plan: [] Disposition: [] Home stable Impression: [] 2 cm right back abscess cyst status post I&D This note was generated with [employer] dictation software. It may contain incorrect words, spelling, and punctuation that were not noted in review of the chart prior to signing ED Disposition - Plan for ED Patient: Chief Complaint: Abscess Referrals: Omero Hager DO [Primary Care Provider] -
--- NOTE | 2017-10-30 12:55 | ED.DEP ---
ED Disposition - Plan for ED Patient: Chief Complaint: Abscess Instructions: ED Abscess IandD Referrals: Omero Hager DO [Primary Care Provider] - Additional Instructions: Call your physician so they can check the wound culture to see if you need additional antibiotics
--- NOTE | 2017-11-01 13:15 | ED.RN ---
Wound culture results required med changes. Called patient at [phone] to inform of rx change. He verbalized understanding and requested I call [facility] in [facility]. Called [facility] with new rx for Doxycycline 100,g po bid, x10 days. Spoke with Jose.
== END 2017-10-30 13:28 | disposition home or self-care (01) ==
LOC: ED 12:48
PROVIDERS: Emergency Provider Emergency Medicine; Family Provider Student in an Organized Health Care Education/Training Program; PCP Student in an Organized Health Care Education/Training Program
DX: L02.212 Cutaneous abscess of back [any part, except buttock and flank] (principal); B95.7 Other staphylococcus as the cause of diseases classified elsewhere; Z93.6 Other artificial openings of urinary tract status; I12.0 Hypertensive chronic kidney disease with stage 5 chronic kidney disease or end stage renal disease; E11.22 Type 2 diabetes mellitus with diabetic chronic kidney disease; N18.6 End stage renal disease; Z99.2 Dependence on renal dialysis; Z79.4 Long term (current) use of insulin; Z79.2 Long term (current) use of antibiotics
CPT/HCPCS: 10060; 87070; 87077; 87186; 87205; 99283

== ENCOUNTER → 2017-11-08 12:42 | Outpatient (CLI) | payer MEDICARE, OTHER, SELFPAY ==
--- NOTE | 2017-11-08 12:59 | RAD_ITS ---
STUDY: NEPHROSTOMY TUBE EXCHANGE LEFT REASON FOR EXAM: Male, 72 years old. Chronic left ureteral obstruction. FLUOROSCOPY TIME (if supplied): (0:44) minutes/seconds TECHNIQUE: Nonionic contrast was injected into the indwelling nephrostomy catheter. Over an Amplatz stiff guidewire, the indwelling percutaneous nephrostomy catheter was exchanged. A new 8 Kinyarwanda catheter was placed in good position. COMPARISON: Comparison is made with prior study September 27, 2017. RAD/Nephrostomy Tube Exchange IMPRESSION: Successful left nephrostomy catheter exchange. Electronically Signed: Grayson Perez MD at 14:41 EDT Tel [phone], Service support ,
== END ==
PROVIDERS: Family Provider Student in an Organized Health Care Education/Training Program; PCP Student in an Organized Health Care Education/Training Program; Visit Provider Urology
DX: N13.1 Hydronephrosis with ureteral stricture, not elsewhere classified (principal)
CPT/HCPCS: 50435; Q9967